=== PATIENT | female | born 1970 ===

== ENCOUNTER 2017-05-10 16:37 | Emergency (ER) | payer OTHER ==
[2017-05-10 16:54] VITALS: BP 123/76; PULSE 84; RESP 18; TEMP 97.8; O2SAT 99
[2017-05-10] MEDS ORDERED: Naproxen 500 MG TAB PO ONE ×2 (17:05→17:34)
--- NOTE | 2017-05-10 17:44 | ED PDOC ---
Lower Extremity Pain/Injury Time Seen by Provider: 05/10/17 17:06 Chief Complaint (Nursing): Lower Extremity Problem/Injury Chief Complaint (Provider): Lower Extremity Problem/Injury History Per: Patient History/Exam Limitations: no limitations Onset/Duration Of Symptoms: Days (x7) Current Symptoms Are (Timing): Still Present Additional Complaint(s): Elsi Gutierrez is a 47 year old female presenting to the ED for an evaluation of atraumatic right foot swelling associated with pain occurring for the past week prior to arrival. The patient states over the past 2 days, the swelling and associated pain became worse prompting her ED visit. She also reports associated atraumatic non-radiating lower back pain worsening with movement. She denies numbness, tingling, hematuria, dysuria, incontinence, fever, shortness of breath, cough, orthopnea, or any history of cardiac disease. PMD: Provider TBD Past Medical History Reviewed: Historical Data, Nursing Documentation, Vital Signs Vital Signs: Last Vital Signs Temp 97.8 F 05/10/17 16:51 Pulse 84 05/10/17 16:51 Resp 18 05/10/17 16:51 BP 123/76 05/10/17 16:51 Pulse Ox 99 05/10/17 16:51 - Family History Family History: States: Unknown Family Hx - Social History Current smoker - smoking cessation education provided: No Ex-Smoker (has not smoked in the last 12 months): No Alcohol: None Drugs: Denies - Immunization History Hx Tetanus Toxoid Vaccination: No Hx Influenza Vaccination: No Hx Pneumococcal Vaccination: No - Home Medications Home Medications: Ambulatory Orders Medication Instructions Recorded Ibuprofen [Motrin] 600 mg PO Q6 PRN #25 tab 08/30/13 Tramadol Hydrochloride [Tramadol] 50 mg PO Q6H #30 tab 08/30/13 Meloxicam [Mobic] 7.5 mg PO DAILY PRN #30 tab 05/10/17 - Allergies Allergies/Adverse Reactions: Allergies Allergy/AdvReac Type Severity Reaction Status Date / Time No Known Allergies Allergy Verified 05/10/17 17:08 Review of Systems Constitutional: Negative for: Fever Cardiovascular: Negative for: Orthopnea Respiratory: Negative for: Cough, Shortness of Breath Genitourinary Female: Negative for: Dysuria, Incontinence, Hematuria Musculoskeletal: Positive for: Foot Pain (atraumatic right foot swelling and pain) Neurological: Negative for: Numbness (and no tingling) Physical Exam - Reviewed Nursing Documentation Reviewed: Yes Vital Signs Reviewed: Yes - Physical Exam Appears: Positive for: No Acute Distress Head Exam: Positive for: ATRAUMATIC, NORMOCEPHALIC Skin: Positive for: Normal Color, Warm, Dry Eye Exam: Positive for: Normal appearance, EOMI, PERRL ENT: Positive for: Normal ENT Inspection Neck: Positive for: Normal, Painless ROM, Supple Cardiovascular/Chest: Positive for: Regular Rate, Rhythm, Chest Non Tender Respiratory: Positive for: Normal Breath Sounds. Negative for: Respiratory Distress Pulses-Dorsalis Pedis (L): 2+ Pulses-Dorsalis Pedis (R): 2+ Gastrointestinal/Abdominal: Positive for: Normal Exam, Soft. Negative for: Tenderness Back: Positive for: Normal Inspection. Negative for: L CVA Tenderness, R CVA Tenderness, Vertebral Tenderness Extremity: Positive for: Tenderness (minimal tenderness to right ankle), Swelling (moderate swelling to right ankle). Negative for: Calf Tenderness ( bilaterally), Other (no warmth or erythema to right ankle; no breaking skin integrity) Neurologic/Psych: Positive for: Alert, Oriented (x3) - Laboratory Results Result Diagrams: 05/10/17 17:42 05/10/17 17:42 Urine POC: Negative Urine dip results: Negative for: Leukocyte Esterase, Blood, Nitrate, Ketones, Glucose, Bilirubin, Protein - ECG O2 Sat by Pulse Oximetry: 99 (RA) Pulse Ox Interpretation: Normal - Radiology X-Ray: Interpreted by Me (R ankle x-ray) X-Ray Interpretation: No Acute Disease Medical Decision Making Medical Decision Making: Time: 17:06 Impression: Atraumatic right foot swelling/pain associated with lower back pain Plan: * B-Type Natriuretic Peptide * CMP * Uric Acid * ED Urine (POC) * ED Urine Dipstick (POC) * CBC (with differential) * Naproxen 500 mg PO * [RAD] Ankle Right 3 Views Routine * Reevaluation Scribe Attestation: Documented by Nicole Hardin, acting as a scribe for Estiven De Guzman PA-C. Provider Scribe Attestation: All medical record entries made by the Scribe were at my direction and personally dictated by me. I have reviewed the chart and agree that the record accurately reflects my personal performance of the history, physical exam, medical decision making, and the department course for this patient. I have also personally directed, reviewed, and agree with the discharge instructions and disposition. Disposition - Clinical Impression Clinical Impression: Ankle pain, Low back pain - Patient ED Disposition Is Patient to be Admitted: No - Disposition Referrals: [facility] [Outside] [facility] [Outside] Disposition: Routine/Home Disposition Time: 18:48 Condition: STABLE Prescriptions: Meloxicam [Mobic] 7.5 mg PO DAILY PRN #30 tab PRN Reason: Pain, Mild (1-3) Instructions: Acute Low Back Pain (ED), Arthralgia (ED) Forms: [employer] (Georgian) Print Language: VENEZUELAN
[2017-05-10 17:55] LABS: ALB/GLOB RATIO 1.2 (1.0-2.1); ALKALINE PHOSPHATASE 70 U/L (38-126); ALT/SGPT 31 U/L (9-52); AST/SGOT 32 U/L (14-36); BILIRUBIN,TOTAL 0.4 mg/dl (0.2-1.3); BLOOD UREA NITROGEN 11 mg/dl (7-17); CALCIUM 9.2 mg/dL (8.4-10.2); CARBON DIOXIDE 27 mmol/L (22-30); CHLORIDE 105 mmol/L (98-107); GFR AFRICAN-AMERICAN > 60; GLUCOSE,RANDOM 90 mg/dL (65-105); POTASSIUM 4.1 MMOL/L (3.6-5.0); SODIUM 140 mmol/l (132-148); TOTAL PROTEIN 7.1 G/DL (6.3-8.2); URIC ACID 2.3 mg/Dl (2.2-7.5)
[2017-05-10 17:57] LABS: BASO % 0.5 % (0.0-2.0); EOS % 0.6 % (0.0-4.0); HEMATOCRIT 32.7 % (34.0-47.0); LYMPH # 1.7 K/uL (1.0-4.3); LYMPH % 32.7 % (20.0-40.0); MEAN CELL VOLUME 75.6 fl (81.0-99.0); MEAN CORPUSCULAR HEMOGLOBIN 23.9 pg (27.0-31.0); MEAN CORPUSCULAR HGB CONC 31.6 g/dL (33.0-37.0); MEAN PLATELET VOLUME 8.8 fl (7.2-11.7); MONO # 0.8 K/uL (0.0-0.8); NEUT # 2.6 K/uL (1.8-7.0); NEUT % 50.2 % (50.0-75.0); NRBC % 0.1 % (0.0-0.0); RED CELL DISTRIBUTION WIDTH 15.7 % (11.5-14.5); WHITE BLOOD COUNT 5.1 K/uL (4.8-10.8)
--- NOTE | 2017-05-10 22:23 | RAD ---
PROCEDURE: Right Ankle Radiographs. HISTORY: pain and swelling COMPARISON: None FINDINGS: BONES: Normal. No fracture. JOINTS: Normal. No osteoarthritis. Ankle mortise maintained. Talar dome intact SOFT TISSUES: Normal. OTHER FINDINGS: None. IMPRESSION: Normal right ankle radiographs.
== END 2017-05-10 18:59 | disposition home or self-care (01) ==
LOC: H.ER 16:37
DX: M25.571 Pain in right ankle and joints of right foot (principal); M54.5 Low back pain

== ENCOUNTER 2017-06-09 18:22 | Emergency (ER) | payer OTHER ==
[2017-06-09 18:38] VITALS: RESP 18; TEMP 99.7
--- NOTE | 2017-06-09 19:11 | ED PDOC ---
HPI: CCC, URI, Sore Throat Time Seen by Provider: 06/09/17 18:41 Chief Complaint (Nursing): Cough, Cold, Congestion Chief Complaint (Provider): Cough, Cold, Congestion History Per: Patient History/Exam Limitations: no limitations Onset/Duration Of Symptoms: Days (x 1 week) Current Symptoms Are (Timing): Still Present Additional Complaint(s): Elsi is a 47 y/o female who presents to the ED complaining of cough for 2 days, with cold symptoms for the past week. Developed back pain today, prompting this ED visit. Cough is productive of white phlegm. Took Ibuprofen yesterday with minimal relief, and no medications today. PMD: Mela Spangler Past Medical History Reviewed: Historical Data, Nursing Documentation, Vital Signs Vital Signs: Last Vital Signs Temp 99.7 F H 06/09/17 18:34 Pulse 113 H 06/09/17 18:34 Resp 18 06/09/17 18:34 BP 148/85 06/09/17 18:34 Pulse Ox 100 06/09/17 20:01 - Medical History PMH: No Chronic Diseases - Surgical History Other surgeries: Cyst removal R breast - Family History Family History: States: Unknown Family Hx - Social History Current smoker - smoking cessation education provided: No Alcohol: None Drugs: Denies - Immunization History Hx Tetanus Toxoid Vaccination: No Hx Influenza Vaccination: No Hx Pneumococcal Vaccination: No - Home Medications Home Medications: Ambulatory Orders Medication Instructions Recorded Ibuprofen [Motrin] 600 mg PO Q6 PRN #25 tab 08/30/13 Tramadol Hydrochloride [Tramadol] 50 mg PO Q6H #30 tab 08/30/13 Meloxicam [Mobic] 7.5 mg PO DAILY PRN #30 tab 05/10/17 Azithromycin 250 mg PO DAILY #6 tab 06/09/17 - Allergies Allergies/Adverse Reactions: Allergies Allergy/AdvReac Type Severity Reaction Status Date / Time No Known Allergies Allergy Verified 06/09/17 18:33 Review of Systems ROS Statement: Except As Marked, All Systems Reviewed And Found Negative Constitutional: Negative for: Fever, Chills Respiratory: Positive for: Cough, Sputum Musculoskeletal: Positive for: Back Pain Physical Exam - Reviewed Nursing Documentation Reviewed: Yes Vital Signs Reviewed: Yes - Physical Exam Appears: Positive for: Non-toxic, No Acute Distress Head Exam: Positive for: ATRAUMATIC, NORMAL INSPECTION, NORMOCEPHALIC Skin: Positive for: Normal Color, Warm, Dry Eye Exam: Positive for: Normal appearance Neck: Positive for: Normal Respiratory: Positive for: Normal Breath Sounds. Negative for: Accessory Muscle Use, Respiratory Distress Back: Positive for: Normal Inspection. Negative for: L CVA Tenderness, R CVA Tenderness, Vertebral Tenderness Extremity: Positive for: Normal ROM. Negative for: Pedal Edema, Deformity Neurologic/Psych: Positive for: Alert, Oriented - ECG O2 Sat by Pulse Oximetry: 100 (RA) Pulse Ox Interpretation: Normal Medical Decision Making Medical Decision Making: Time: 19:25 Initial Plan: --EKG --Chest X-Ray --Ibuprofen 600 mg PO Scribe Attestation: Documented by Connie Beard, acting as a scribe for Lyn Molina PA-C Provider Scribe Attestation: All medical record entries made by the Scribe were at my direction and personally dictated by me. I have reviewed the chart and agree that the record accurately reflects my personal performance of the history, physical exam, medical decision making, and the department course for this patient. I have also personally directed, reviewed, and agree with the discharge instructions and disposition. Disposition - Clinical Impression Clinical Impression: Acute bronchitis - Patient ED Disposition Is Patient to be Admitted: No Counseled Patient/Family Regarding: Diagnosis, Need For Followup, Rx Given - Disposition Disposition: Routine/Home Disposition Time: 20:58 Condition: GOOD Prescriptions: Azithromycin 250 mg PO DAILY #6 tab Instructions: Acute Bronchitis (ED) Forms: [employer] (Sudanese) Print Language: UKRAINIAN
[2017-06-09 21:06] VITALS: BP 130/70; PULSE 87; O2SAT 99
--- NOTE | 2017-06-10 08:02 | CARD ---
APPROVED REPORT EKG Measurement Heart [id number] <Conclusion> Normal sinus rhythm Normal ECG
== END 2017-06-09 21:05 | disposition home or self-care (01) ==
LOC: H.ER 18:22
DX: J20.9 Acute bronchitis, unspecified (principal); M54.9 Dorsalgia, unspecified

== ENCOUNTER 2018-01-08 13:05 | Emergency (ER) | payer OTHER ==
[2018-01-08 13:10] VITALS: BP 131/86; PULSE 65; RESP 18; TEMP 97; O2SAT 99
[2018-01-08] MEDS ORDERED: Sodium Chloride 0.9% 1,000 ML IV STA (14:15)
--- NOTE | 2018-01-08 14:36 | ED PDOC ---
HPI: Abdomen Time Seen by Provider: 01/08/18 13:21 Chief Complaint (Nursing): Abdominal Pain Chief Complaint (Provider): Back and abdominal pain History Per: Patient History/Exam Limitations: no limitations Onset/Duration Of Symptoms: Days (x3) Current Symptoms Are (Timing): Still Present Additional Complaint(s): 47 year old female with a past medical history of hyperthyroidism who presents to the emergency department with a complaint of a constant bilateral lower back and abdominal pain x3 days. Associated with minimal painful urination. Reports taking Advil without relief. Denies fever, vomiting, constipation, diarrhea, or blood in urine. Past Medical History Reviewed: Historical Data, Nursing Documentation, Vital Signs Vital Signs: Last Vital Signs Temp 97.0 F L 01/08/18 13:08 Pulse 65 01/08/18 13:08 Resp 18 01/08/18 13:08 BP 131/86 01/08/18 13:08 Pulse Ox 99 01/08/18 13:08 - Medical History PMH: Hyperthyroidism - Surgical History Surgical History: No Surg Hx - Family History Family History: States: Unknown Family Hx - Social History Current smoker - smoking cessation education provided: No Alcohol: None Drugs: Denies - Immunization History Hx Tetanus Toxoid Vaccination: No Hx Influenza Vaccination: No Hx Pneumococcal Vaccination: No - Home Medications Home Medications: Ambulatory Orders Medication Instructions Recorded Ibuprofen [Motrin] 600 mg PO Q6 PRN #25 tab 08/30/13 Tramadol Hydrochloride [Tramadol] 50 mg PO Q6H #30 tab 08/30/13 Meloxicam [Mobic] 7.5 mg PO DAILY PRN #30 tab 05/10/17 Azithromycin 250 mg PO DAILY #6 tab 06/09/17 - Allergies Allergies/Adverse Reactions: Allergies Allergy/AdvReac Type Severity Reaction Status Date / Time No Known Allergies Allergy Verified 06/09/17 18:33 Review of Systems ROS Statement: Except As Marked, All Systems Reviewed And Found Negative (As per HPI, otherwise negative) Constitutional: Negative for: Fever Gastrointestinal: Positive for: Abdominal Pain (lower). Negative for: Vomiting , Diarrhea, Constipation Genitourinary Female: Positive for: Dysuria. Negative for: Hematuria Musculoskeletal: Positive for: Back Pain (Bilateral lower back pain) Physical Exam - Reviewed Nursing Documentation Reviewed: Yes Vital Signs Reviewed: Yes - Physical Exam Appears: Positive for: In Acute Distress (Mild) Head Exam: Positive for: NORMAL INSPECTION Skin: Positive for: Normal Color, Warm, Dry Cardiovascular/Chest: Positive for: Regular Rate, Rhythm. Negative for: Murmur Respiratory: Positive for: Normal Breath Sounds. Negative for: Accessory Muscle Use, Respiratory Distress Gastrointestinal/Abdominal: Positive for: Normal Exam, Soft. Negative for: Tenderness (Suprapubic tenderness), Other (McBurney's point tenderness) Pelvic Exam: Positive for: Other (Bilateral lower pelvic tenderness) Back: Positive for: Normal Inspection. Negative for: L CVA Tenderness, R CVA Tenderness Neurologic/Psych: Positive for: Alert, Oriented (x3) - ECG O2 Sat by Pulse Oximetry: 99 (RA) Pulse Ox Interpretation: Normal Medical Decision Making Medical Decision Making: Time: 1415 Initial impression: Lower back and abdominal pain Initial plan: --CMP --Urine DIP & Preg --CBC w/ diff --PTT & Prothrombin --Morphine 2 mg IV --Sodium Chloride 1L IV --Pelvis/Transvag US --Reevaluation Scribe Attestation: Documented by Zamzam Ashraf, acting as a scribe for Cheyanne Fuentes MD Provider Scribe Attestation: All medical record entries made by the Scribe were at my direction and personally dictated by me. I have reviewed the chart and agree that the record accurately reflects my personal performance of the history, physical exam, medical decision making, and the department course for this patient. I have also personally directed, reviewed, and agree with the discharge instructions and disposition. Disposition - Disposition
[2018-01-08 14:47] LABS: BASO % 0.4 % (0.0-2.0); EOS % 0.2 % (0.0-4.0); HEMOGLOBIN 14.3 g/dL (12.0-16.0); LYMPH # 1.2 K/uL (1.0-4.3); LYMPH % 15.4 % (20.0-40.0); MEAN CELL VOLUME 88.9 fl (81.0-99.0); MEAN CORPUSCULAR HEMOGLOBIN 30.8 pg (27.0-31.0); MEAN CORPUSCULAR HGB CONC 34.7 g/dL (33.0-37.0); MEAN PLATELET VOLUME 8.6 fl (7.2-11.7); MONO # 0.4 K/uL (0.0-0.8); MONO % 5.5 % (0.0-10.0); NEUT # 6.1 K/uL (1.8-7.0); NEUT % 78.5 % (50.0-75.0); NRBC % 0.2 % (0.0-0.0); RBC 4.65 Mil/uL (3.80-5.20); RED CELL DISTRIBUTION WIDTH 13.5 % (11.5-14.5); WHITE BLOOD COUNT 7.7 K/uL (4.8-10.8)
[2018-01-08 14:52] LABS: ALB/GLOB RATIO 1.2 (1.0-2.1); ALBUMIN 4.5 g/dL (3.5-5.0); ALT/SGPT 40 U/L (9-52); AST/SGOT 36 U/L (14-36); BLOOD UREA NITROGEN 11 mg/dl (7-17); CALCIUM 9.1 mg/dL (8.4-10.2); GFR AFRICAN-AMERICAN > 60; GFR NON-AFRICAN AMERICAN > 60
[2018-01-08 15:11] LABS: PARTIAL THROMBOPLASTIN TIME 36.9 Seconds (25.6-37.1); PROTHROMBIN TIME 11.3 Seconds (9.8-13.1)
--- NOTE | 2018-01-08 15:23 | ED PDOC ---
- Laboratory Results Result Diagrams: 01/08/18 14:38 01/08/18 14:38 - ECG O2 Sat by Pulse Oximetry: 99 (RA) Pulse Ox Interpretation: Normal Medical Decision Making Medical Decision Making: Time: 1500 --Patient was endorsed from Dr. Fuentes to me. --Pending Pelvis/Transvag US, blood work, and reassessment. Time: 1710 --Pelvis/Transvag US FINDINGS: UTERUS: Measures 3.7 x 5.8 x 12.3 cm. Normal in size and appearance. No fibroid or other mass lesion seen. ENDOMETRIUM: Measures 6.8 mm in diameter. No ultrasound findings to suggest gestational sac, fluid, debris, mass or polyp or other pathologic process within the endometrium. CERVIX: No cervical abnormality identified.Incidental finding: Nabothian cysts the largest measures 1.1 cm. RIGHT OVARY: Measures 3.2 x 3.5 x 4.0 cm. No solid mass. Normal flow. Simple cyst 2 x 2.2 x 2.4 cm. LEFT OVARY: Measures 2.1 x 3 x 3.1 cm. No solid mass. Normal flow. Simple cyst 2.1 x 2.1 x 1.9 cm FREE FLUID: No significant free fluid noted. OTHER FINDINGS: None. IMPRESSION: No acute findings related to/accounting for the clinical presentation. Additional benign and/or incidental findings described above. Labs unremarkable. DW pt findings and plan of care. NSAIDs and rest. F/u clinic next week. RTER for worsening symptoms. Scribe Attestation: Documented by Zamzam Ashraf, acting as a scribe for Liz Johnson MD Provider Scribe Attestation: All medical record entries made by the Scribe were at my direction and personally dictated by me. I have reviewed the chart and agree that the record accurately reflects my personal performance of the history, physical exam, medical decision making, and the department course for this patient. I have also personally directed, reviewed, and agree with the discharge instructions and disposition. Disposition Counseled Patient/Family Regarding: Studies Performed, Diagnosis, Need For Followup, Rx Given - Clinical Impression Clinical Impression: Low back pain - POA Present On Arrival: None - Disposition Referrals: [facility] [Outside] Disposition: Routine/Home Disposition Time: 17:00 Condition: STABLE Additional Instructions: LLAME A LA CLINICA POR LA MANANA A HACER MARVA GABRIEL EN 2-3 WILLIAMSON A CHEQAR DE NUEVO MARTI MEDICAMENTOS A RECETO Prescriptions: Cyclobenzaprine [Flexeril] 5 mg PO Q8 PRN #10 tab PRN Reason: muscle spasm Naproxen [Naprosyn] 1 tab PO BID PRN #30 tab PRN Reason: Pain Instructions: Low Back Pain (DC) Forms: [facility] ED School/Work Excuse Print Language: KAZAKH
--- NOTE | 2018-01-08 17:12 | US ---
HISTORY: Back pain, pelvic pain. Menstrual status: LMP 01/03/2018. Cycles are irregular. COMPARISON: None available. TECHNIQUE: Transabdominal, transvaginal. Real -time technique with 2D, duplex and color Doppler. FINDINGS: UTERUS: Measures 3.7 x 5.8 x 12.3 cm. Normal in size and appearance. No fibroid or other mass lesion seen. ENDOMETRIUM: Measures 6.8 mm in diameter. No ultrasound findings to suggest gestational sac, fluid, debris, mass or polyp or other pathologic process within the endometrium. CERVIX: No cervical abnormality identified.Incidental finding: Nabothian cysts the largest measures 1.1 cm. RIGHT OVARY: Measures 3.2 x 3.5 x 4.0 cm. No solid mass. Normal flow. Simple cyst 2 x 2.2 x 2.4 cm. LEFT OVARY: Measures 2.1 x 3 x 3.1 cm. No solid mass. Normal flow. Simple cyst 2.1 x 2.1 x 1.9 cm FREE FLUID: No significant free fluid noted. OTHER FINDINGS: None. IMPRESSION: No acute findings related to/accounting for the clinical presentation. Additional benign and/or incidental findings described above.
== END 2018-01-08 19:00 | disposition home or self-care (01) ==
LOC: H.ER 13:05
DX: N83.201 Unspecified ovarian cyst, right side (principal); N83.202 Unspecified ovarian cyst, left side
CPT/HCPCS: 76830; 76856; 80053; 81025; 85025; 85610; 85730; 99283; J2270; J7040

== ENCOUNTER 2018-01-10 15:40 | Emergency (ER) | payer OTHER ==
[2018-01-10 15:49] VITALS: BP 145/87; O2SAT 100
[2018-01-10] MEDS ORDERED: Oxycodone/Acetaminophen 5/325 mg Tab PO STA (16:08)
--- NOTE | 2018-01-10 16:15 | ED PDOC ---
HPI: Back Time Seen by Provider: 01/10/18 16:08 Chief Complaint (Nursing): Back Pain Chief Complaint (Provider): Back pain History Per: Patient History/Exam Limitations: no limitations Onset/Duration Of Symptoms: Days (x5) Current Symptoms Are (Timing): Still Present Additional Complaint(s): 47 year old female presented to ED with lower back pain with onset of 5 days. Patient reports she is unsure of its trigger and denies any falls. 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 She was seen in the the ED 2 days ago and was given naproxen and flexeril but pain still continued. Patient states that it is very difficult for to get out of bed without assistance. PCP: none provided Past Medical History Reviewed: Historical Data, Nursing Documentation, Vital Signs Vital Signs: Last Vital Signs Temp 97.8 F 01/10/18 15:46 Pulse 73 01/10/18 15:46 Resp 16 01/10/18 15:46 BP 145/87 01/10/18 15:46 Pulse Ox 100 01/10/18 15:46 - Medical History PMH: Hyperthyroidism - Surgical History Surgical History: No Surg Hx - Family History Family History: States: Unknown Family Hx - Immunization History Hx Tetanus Toxoid Vaccination: No Hx Influenza Vaccination: No Hx Pneumococcal Vaccination: No - Home Medications Home Medications: Ambulatory Orders Medication Instructions Recorded Ibuprofen [Motrin] 600 mg PO Q6 PRN #25 tab 08/30/13 Tramadol Hydrochloride [Tramadol] 50 mg PO Q6H #30 tab 08/30/13 Meloxicam [Mobic] 7.5 mg PO DAILY PRN #30 tab 05/10/17 Azithromycin 250 mg PO DAILY #6 tab 06/09/17 Cyclobenzaprine [Flexeril] 5 mg PO Q8 PRN #10 tab 01/08/18 Naproxen [Naprosyn] 1 tab PO BID PRN #30 tab 01/08/18 diaZEpam [Valium] 5 mg PO Q8 PRN #6 tab 01/10/18 - Allergies Allergies/Adverse Reactions: Allergies Allergy/AdvReac Type Severity Reaction Status Date / Time No Known Allergies Allergy Verified 06/09/17 18:33 Review of Systems ROS Statement: Except As Marked, All Systems Reviewed And Found Negative Musculoskeletal: Positive for: Back Pain (lower back pain) Physical Exam - Reviewed Nursing Documentation Reviewed: Yes Vital Signs Reviewed: Yes - Physical Exam Appears: Positive for: Non-toxic, No Acute Distress Head Exam: Positive for: ATRAUMATIC, NORMAL INSPECTION, NORMOCEPHALIC Skin: Positive for: Normal Color, Warm, Dry Eye Exam: Positive for: Normal appearance Neck: Positive for: Normal, Painless ROM Back: Positive for: Other (para lower lumbar and para lumbosacral tenderness) - ECG O2 Sat by Pulse Oximetry: 100 (RA) Pulse Ox Interpretation: Normal - Progress ED Course And Treament: XRY L SPINE NAD Medical Decision Making Medical Decision Making: Initial Impression: lower back pain Initial Plan: Oxycodone/acetaminophen 1 tab PO ED urine X-ray spine Scribe Attestation: Documented by Sukhdev Hardin acting as a scribe for Natali VINSON. Provider Scribe Attestation: All medical record entries made by the Scribe were at my direction and personally dictated by me. I have reviewed the chart and agree that the record accurately reflects my personal performance of the history, physical exam, medical decision making, and the department course for this patient. I have also personally directed, reviewed, and agree with the discharge instructions and disposition. Disposition - Clinical Impression Clinical Impression: Back pain - Patient ED Disposition Is Patient to be Admitted: No - Disposition Referrals: [facility] [Outside] Disposition: Routine/Home Disposition Time: 17:42 Condition: FAIR Prescriptions: diaZEpam [Valium] 5 mg PO Q8 PRN #6 tab PRN Reason: Pain, Moderate (4-7) Instructions: Lumbar Muscle Strain (DC) Forms: [facility] (Congolese) Print Language: MACEDONIAN
[2018-01-10] MEDS ORDERED: Oxycodone/Acetaminophen 5/325 mg Tab ONE (16:27)
--- NOTE | 2018-01-10 17:09 | RAD ---
PROCEDURE: Radiographs of the Lumbar Spine. HISTORY: BACK PAIN COMPARISON: No prior. FINDINGS: BONES: Vertebral bodies maintained in height. Minimal dextroscoliosis. Transverse processes and posterior elements are intact. No listhesis. DISC SPACES: Disc spaces maintained in height. OTHER FINDINGS: Cholelithiasis IMPRESSION: No fracture/ dislocation. No evidence of degenerative disc disease. Cholelithiasis.
[2018-01-10 17:57] VITALS: PULSE 69; RESP 18; TEMP 98.1
== END 2018-01-10 18:11 | disposition home or self-care (01) ==
LOC: H.ER 15:40
DX: M54.9 Dorsalgia, unspecified (principal); E05.90 Thyrotoxicosis, unspecified without thyrotoxic crisis or storm